=== PATIENT | female | born 1995 | race Caucasian/White ===

== ENCOUNTER 2017-02-02 00:08 | Emergency (ER) | payer MEDICAID, OTHER ==
--- NOTE | 2017-02-02 00:49 | PD ---
HPI Chief Complaint Vaginal bleeding Date Seen: Feb 02, 2017 Time Seen: 00:44 Travel History International Travel<30 Days: No Contact w/Intl Traveler<30Days: No Known Affected Area: No History of Present Illness HPI 21-year-old white female who is 36 weeks and 3 days comes in to the OB ED due to vaginal bleeding. She was seen and the office today vaginal examination was performed for which she had some bleeding as a result. She called the nurse who stated that she needed to go directly to the hospital if the bleeding lasted for greater than an hour. Patient went to work that is that she still had some brown discharge and she came here for an evaluation. Denies contractions or vaginal discharge and no pain Para: 0 History Past Medical History Medical History: Denies Significant Hx Past Surgical History Narrative Surgical Neck surgery and tonsillectomy Family History Family History: Negative Social History Alcohol Use: No Tobacco Use: No Substance Abuse: No Allergies-Medications (Allergen,Severity, Reaction): Coded Allergies: No Known Allergies (Verified , 07/30/16) Home Meds No Active Prescriptions or Reported Meds Review of Systems Except as stated in HPI: all other systems reviewed are Neg Physical Exam Narrative GENERAL: Well-nourished, well-developed patient. SKIN: Warm and dry. HEAD: Normocephalic and atraumatic. EYES: No scleral icterus. No injection or drainage. ENT: No nasal drainage noted. Mucous membranes pink. Airway patent. NECK: Supple, trachea midline. No JVD. CARDIOVASCULAR: Regular rate and rhythm without murmurs, gallops, or rubs. RESPIRATORY: Breath sounds equal bilaterally. No accessory muscle use. BREASTS: Bilateral exam showed no masses , no retractions, no nipple discharge. ABDOMEN/GI: Abdomen soft, non-tender, bowel sounds present, no rebound, no guarding Gravid to [-] weeks size Fundal Height: [37-] GENITOURINARY: External Genitalia: intact and normal in appearance BUS glands: [-Normal] Cervix: [-Posterior] Dilatation: [-1] Effacement: 50 Station: - 3 Presentation: [Vertex-] Membranes: Intact Uterine Contractions: [Absent-] FHT's: Category: [-1] Baseline: [140-] Reactive: Moderate Variability: Moderate Decels: Absent EXTREMITIES: No cyanosis or edema. BACK: Nontender without obvious deformity. No CVA tenderness. NEUROLOGICAL: Awake and alert. Motor and sensory grossly within normal limits. Five out of 5 muscle strength in all muscle groups. Normal speech. Data Data Vital Signs Reviewed: Yes MDM Plan 36-37 weeks gestation with mild vaginal bleeding earlier today due to cervix exam done in office by OB provider No signs of labor or active bleeding Discharge with follow up at OB office Diagnosis Diagnosis: Primary Impression: Vaginal bleeding during , antepartum Additional Impression: 36 weeks gestation of Disposition: DISCHARGE HOME Scripts No Active Prescriptions or Reported Meds Mercy Glover MD Feb 02, 2017 00:49
== END 2017-02-02 01:33 | disposition home or self-care (01) ==
LOC: HOBED 00:08
DX: O46.93 Antepartum hemorrhage, unspecified, third trimester (principal); Z3A.36 36 weeks gestation of pregnancy
CPT/HCPCS: 99283

== ENCOUNTER 2017-03-13 22:10 | Emergency (ER) | payer MEDICAID ==
[~2017-03-13] VITALS: Ht 162.6 cm; Wt 74.8 kg
[2017-03-13 22:22] VITALS: BP 133/88; PULSE 121; RESP 18; TEMP 100.2; O2SAT 99
[2017-03-13] MEDS ORDERED: OXYC-395 PO (22:45)
[2017-03-13 22:46] VITALS: BP 133/88; PULSE 121; RESP 18; TEMP 100.2; O2SAT 99
[2017-03-13 22:46] LABS: BLOOD, URINE LARGE (NEG); GLUCOSE,URINE NEG (NEG); KETONE, URINE NEG (NEG); NITRITE,URINE NEG (NEG)
[2017-03-13 22:49] LABS: URINE COLOR PINK (YELLW/STRAW)
[2017-03-13 22:51] LABS: BACTERIA, URINE MOD /hpf; COMMENT (UR) CULTURE INDICATED; CULTURE IF INDICATED CULTURE INDICATED; MUCUS URINE FEW /lpf (OCC); SQUAMOUS EPITHELIAL CELL URINE > 8 /hpf (0-5)
[2017-03-13] MEDS ORDERED: AUGM875T PO (23:10)
--- NOTE | 2017-03-13 23:10 | PD ---
HPI Chief Complaint: GI Complaint Time Seen by Provider: 22:28 Travel History International Travel<30 days: No Contact w/Intl Traveler<30days: No Traveled to known affect area: No History of Present Illness HPI This 21-year-old female is complaining of chills. She has had some pain with urinating. She's had some lower abdominal pain. She had a baby one week ago by vaginal delivery. She is having lower abdominal pain. Pain is moderate in intensity scleral PFSH Past Medical History Diminished Hearing: No Immunizations Current: Yes Tetanus Vaccination: Unknown Influenza Vaccination: No ?: Not LMP: BLEEDING NOW POST : 2 Para: 0 Miscarriage: 1 Past Surgical History Tonsillectomy: Yes Social History Alcohol Use: No Tobacco Use: No Substance Use: No Allergies-Medications (Allergen,Severity, Reaction): Coded Allergies: No Known Allergies (Verified , 03/13/17) Reported Meds & Prescriptions Reported Meds & Active Scripts Active Reported Oxycodone (Oxycodone HCl) 10 Mg Tab 10 Mg PO Q6H PRN Review of Systems General / Constitutional: Positive: Fever, Chills Eyes: No: Diploplia HENT: No: Headaches Cardiovascular: No: Chest Pain or Discomfort Respiratory: No: Cough, Shortness of Breath Gastrointestinal: No: Nausea Genitourinary: Positive: Frequency, Dysuria, Pelvic Pain Musculoskeletal: No: Myalgias Skin: No Rash Physical Exam Narrative GENERAL: Well-developed female SKIN: Focused skin assessment warm/dry. HEAD: Atraumatic. Normocephalic. EYES: Pupils equal and round. No scleral icterus. No injection or drainage. ENT: No nasal bleeding or discharge. Mucous membranes pink and moist. NECK: Trachea midline. No JVD. CARDIOVASCULAR: Regular rate and rhythm. No murmur appreciated. RESPIRATORY: No accessory muscle use. Clear to auscultation. Breath sounds equal bilaterally. GASTROINTESTINAL: Abdomen soft, non-tender, nondistended. Hepatic and splenic margins not palpable. Pelvic: There is some bleeding and some discharge. There is pain with palpation of the uterus and in his chest. MUSCULOSKELETAL: No obvious deformities. No clubbing. No cyanosis. No edema. NEUROLOGICAL: Awake and alert. No obvious cranial nerve deficits. Motor grossly within normal limits. Normal speech. PSYCHIATRIC: Appropriate mood and affect; insight and judgment normal. Data Data Last Documented VS Vital Signs Date Time Temp Pulse Resp B/P Pulse Ox O2 Delivery O2 Flow Rate FiO2 03/13/17 22:57 18 03/13/17 22:46 100.2 121 133/88 99 Orders Urinalysis - C+S If Indicated (03/13/17 22:29) Urine Culture (03/13/17 22:40) Labs Laboratory Tests Test 03/13/17 22:40 Urine Color PINK Urine Turbidity CLOUDY Urine pH 7.0 Urine Specific [place] 1.020 Urine Protein 100 mg/dL Urine Glucose (UA) NEG mg/dL Urine Ketones NEG mg/dL Urine Occult Blood LARGE Urine Nitrite NEG Urine Bilirubin NEG Urine Leukocyte Esterase MOD Urine RBC 10-14 /hpf Urine WBC 20-24 /hpf Urine Squamous Epithelial > 8 /hpf Cells Urine Amorphous Sediment FEW Urine Bacteria MOD /hpf Urine Mucus FEW /lpf Microscopic Urinalysis Comment CULTURE INDICATED MDM Medical Decision Making Medical Screen Exam Complete: Yes Emergency Medical Condition: Yes Medical Record Reviewed: Yes Differential Diagnosis Differential includes UTI, endometritis Narrative Course Patient does have a UTI and will be treated with Augmentin as this would also treat her possible endometritis. Diagnosis Primary Impression: Urinary tract infection Qualified Code: N30.01 - Acute cystitis with hematuria Scripts Amoxicillin-Clavulanate (Augmentin)875-125 mg [id number] Mg PO BID 10 Days Ref 0 not for use in CrCl <30 ml/min. Prov:Toño Jackman MD 03/13/17 Disposition: 01 DISCHARGE HOME Condition: Stable Toño Jackman MD March 13, 2017 23:10
[2017-03-13] MEDS ORDERED: AMOXICILLIN/CLAVULANATE K 875 MG TAB PO ONE (23:15)
== END 2017-03-13 23:27 | disposition home or self-care (01) ==
LOC: PHED 22:10
DX: N39.0 Urinary tract infection, site not specified (principal); R10.30 Lower abdominal pain, unspecified
CPT/HCPCS: 81001; 87070; 87086; 87205; 99283

== ENCOUNTER 2018-03-23 16:20 | Emergency (ER) | payer MEDICAID, OTHER ==
[~2018-03-23 16:20] MED LIST: METR1TAB76 PO; SPRI28TA PO
[2018-03-23 16:22] VITALS: BP 119/60; PULSE 107; RESP 16; TEMP 98.1; O2SAT 100
[2018-03-23 16:45] VITALS: O2SAT 99
[2018-03-23] MEDS ORDERED: SODIUM CHLOR 0.9% 1000 ML INJ 1,000 ML IV SCH (16:53)
[2018-03-23] MEDS ORDERED: SODIUM CHLORIDE 0.9% FLUSH 10 ML FLUSH IV FLUSH PRN (17:00)
[2018-03-23] MEDS ORDERED: ONDANSETRON ODT 4 MG TAB PO ONE (17:00)
--- NOTE | 2018-03-23 17:01 | PD ---
HPI Chief Complaint: GI Complaint Time Seen by Provider: 16:44 Travel History International Travel<30 days: No Contact w/Intl Traveler<30days: No Traveled to known affect area: No History of Present Illness HPI 22-year-old female here for evaluation of abdominal pain, nausea, and vomiting. Symptoms started yesterday evening and have persisted throughout the night. Patient reports that her vomiting was initially bilious, now is more clear, nonbloody. She complains of diffuse abdominal cramping. Last bowel movement was about 2 hours prior to arrival and was formed. No history of abdominal surgeries. She has had subjective fevers and chills. She also complains of mid back pain described as an ache. She reports that she had the pain 2 days ago in her back, it then subsided, then returned today. Pain is sharp, constant , worse with movements. No urinary symptoms. No vaginal bleeding or discharge. Denies IVDU. PFSH Past Medical History Diminished Hearing: No Immunizations Current: Yes ?: Unknown LMP: 02/21/18 : 2 Para: 0 Miscarriage: 1 Past Surgical History Tonsillectomy: Yes Social History Alcohol Use: No Tobacco Use: No Substance Use: No Allergies-Medications (Allergen,Severity, Reaction): Coded Allergies: No Known Allergies (Verified Adverse Reaction, Unknown, 03/23/18) Reported Meds & Prescriptions Reported Meds & Active Scripts Active Review of Systems Except as stated in HPI: all other systems reviewed are Neg Physical Exam Narrative GENERAL: Well-developed, well-nourished, no apparent distress. SKIN: Focused skin assessment warm/dry. HEAD: Atraumatic. Normocephalic. EYES: Pupils equal and round. No scleral icterus. No injection or drainage. ENT: Mucous membranes pink and dry. NECK: Trachea midline. No JVD. CARDIOVASCULAR: Regular rate and rhythm. No murmur appreciated. RESPIRATORY: No accessory muscle use. Clear to auscultation. Breath sounds equal bilaterally. GASTROINTESTINAL: Abdomen soft, nondistended. Mild diffuse tenderness without peritoneal signs. Normal bowel sounds. No hernias. MUSCULOSKELETAL: No obvious deformities. No clubbing. No cyanosis. No edema. No midline vertebral step-off or tenderness. No CVA tenderness. NEUROLOGICAL: Awake and alert. No obvious cranial nerve deficits. Motor grossly within normal limits. Normal speech. PSYCHIATRIC: Appropriate mood and affect; insight and judgment normal. Data Data Last Documented VS Vital Signs Date Time Temp Pulse Resp B/P (MAP) Pulse Ox O2 Delivery O2 Flow Rate FiO2 03/23/18 18:14 17 03/23/18 18:00 94 111/66 (81) 98 Room Air 03/23/18 16:22 98.1 Orders Orders Complete Blood Count With Diff (03/23/18 16:53) Comprehensive Metabolic Panel (03/23/18 16:53) Lipase (03/23/18 16:53) Prothrombin Time / Inr (Pt) (03/23/18 16:53) Act Partial Throm Time (Ptt) (03/23/18 16:53) Urinalysis - C+S If Indicated (03/23/18 16:53) Iv Access Insert/Monitor (03/23/18 16:53) Ecg Monitoring (03/23/18 16:53) Oximetry (03/23/18 16:53) Sodium Chlor 0.9% 1000 Ml Inj (Ns 1000 M (03/23/18 16:53) Sodium Chloride 0.9% Flush (Ns Flush) (03/23/18 17:00) Ed Urine Pregnancytest Poc (03/23/18 16:53) Ondansetron Odt (Zofran Odt) (03/23/18 17:00) Ketorolac Inj (Toradol Inj) (03/23/18 17:15) Al-Mag Hy-Si 40-40-4 Mg/Ml Liq (Mag-Al P (03/23/18 17:45) Lidocaine 2% Viscous (Xylocaine 2% Visco (03/23/18 17:45) Urine Culture (03/23/18 16:53) Ceftriaxone Inj (Rocephin Inj) (03/23/18 18:30) Morphine Inj (Morphine Inj) (03/23/18 18:30) Ct Abd/Pel W Iv Contrast(Rout) (03/23/18 ) Diphenhydramine Inj (Benadryl Inj) (03/23/18 19:00) Iohexol 350 Inj (Omnipaque 350 Inj) (03/23/18 19:04) Spine, Thoracic-Ap/Lat/Sw(3vw) (03/23/18 ) Labs Laboratory Tests Test 5/13/18 16:53 03/23/18 17:10 03/23/18 17:50 Urine Color STRAW Urine Turbidity SL CLOUDY Urine pH 7.0 Urine Specific [place] LESS/EQUAL 1.005 Urine Protein NEG mg/dL Urine Glucose (UA) NEG mg/dL Urine Ketones NEG mg/dL Urine Occult Blood NEG Urine Nitrite NEG Urine Bilirubin NEG Urine Urobilinogen 0.2 MG/DL Urine Leukocyte Esterase MOD Urine RBC 0-2 /hpf Urine WBC 15-19 /hpf Urine Squamous Epithelial Cells > 8 /hpf Urine Bacteria FEW /hpf Microscopic Urinalysis Comment CULTURE INDICATED White Blood Count 11.2 TH/MM3 Red Blood Count 4.73 MIL/MM3 Hemoglobin 13.6 GM/DL Hematocrit 40.4 % Mean Corpuscular Volume 85.5 FL Mean Corpuscular Hemoglobin 28.8 PG Mean Corpuscular Hemoglobin Concent 33.7 % Red Cell Distribution Width 13.1 % Platelet Count 309 TH/MM3 Mean Platelet Volume 8.2 FL Neutrophils (%) (Auto) 85.3 % Lymphocytes (%) (Auto) 8.6 % Monocytes (%) (Auto) 4.9 % Eosinophils (%) (Auto) 0.5 % Basophils (%) (Auto) 0.7 % Neutrophils # (Auto) 9.5 TH/MM3 Lymphocytes # (Auto) 1.0 TH/MM3 Monocytes # (Auto) 0.5 TH/MM3 Eosinophils # (Auto) 0.1 TH/MM3 Basophils # (Auto) 0.1 TH/MM3 CBC Comment AUTO DIFF Differential Comment AUTO DIFF CONFIRMED Platelet Estimate NORMAL Platelet Morphology Comment NORMAL Red Cell Morphology Comment NORMAL Prothrombin Time 10.8 SEC Prothromb Time International Ratio 1.1 RATIO Activated Partial Thromboplast Time 29.2 SEC Blood Urea Nitrogen 9 MG/DL Creatinine 0.67 MG/DL Random Glucose 102 MG/DL Total Protein 6.1 GM/DL Albumin 2.9 GM/DL Calcium Level 7.9 MG/DL Alkaline Phosphatase 83 U/L Aspartate Amino Transf (AST/SGOT) 11 U/L Alanine Aminotransferase (ALT/SGPT) 16 U/L Total Bilirubin 0.7 MG/DL Sodium Level 138 MEQ/L Potassium Level 3.5 MEQ/L Chloride Level 109 MEQ/L Carbon Dioxide Level 23.6 MEQ/L Anion Gap 5 MEQ/L Estimat Glomerular Filtration Rate 110 ML/MIN Lipase 68 U/L [facility] Medical Decision Making Medical Screen Exam Complete: Yes Emergency Medical Condition: Yes Differential Diagnosis Gastroenteritis, gastritis, pancreatitis, hepatobiliary disease, dehydration/ metabolic abnormality, musculoskeletal back strain from vomiting. Narrative Course Initial vital signs show heart rate 107, blood pressure 119/60, pulse ox 100% on room air, oral temperature 98.1F. CBC: WBC 11.2, hemoglobin 13.6, hematocrit 40.4, platelets 309, neutrophils 85%. CMP is essentially unremarkable. Lipase is 68. Urine is negative. UA: Cloudy, moderate leukocyte esterase, 15-19 WBCs, greater than 8 epithelial cells, few bacteria, culture indicated. CT abdomen pelvis: CONCLUSION: 1. No acute inflammatory process. 2. Functional follicle/hemorrhagic cyst right ovary measures 2 cm. The patient was given 30 mg of IV Toradol with initial improvement in back pain , however soon after returning. She was given 4 mg of IV morphine and shortly afterwards began to have pruritus. She was given Benadryl for this. Patient was made aware of all findings. She still complains of mid/upper back pain. X-ray of the T-spine will be ordered. X-ray thoracic spine: CONCLUSION: Unremarkable thoracic spine. Patient was made aware of all findings. She is resting comfortably, no acute distress. She states that while she was at x-ray with certain positions her back hurt worse. This makes me think that it is more likely musculoskeletal in nature. Her pain could be secondary to vomiting and musculoskeletal strain. It could also be secondary to pyelonephritis. Either way, the patient is stable for discharge home with outpatient follow-up with a primary care physician this week. I will give her a prescription for tramadol, ibuprofen, Macrobid, and Zofran. She reports that she has a night order selector whom she can follow-up with. I also advised that she follow-up with a primary care physician this week. She was advised on when to return to the emergency department. She verbalizes understanding and agreement with plan. Diagnosis Primary Impression: UTI (urinary tract infection) Qualified Codes: N10 - Acute pyelonephritis Additional Impressions: Nausea and vomiting Qualified Codes: R11.2 - Nausea with vomiting, unspecified Back pain Qualified Codes: M54.6 - Pain in thoracic spine Ovarian cyst Qualified Codes: N83.201 - Unspecified ovarian cyst, right side Abdominal pain Qualified Codes: R10.84 - Generalized abdominal pain Referrals: [facility] 3 days Primary Care Physician 3 days Additional Instructions: Follow-up with a primary care physician this week. Follow-up with your night order selector this week. Take medications as prescribed. Return to the emergency department for worsening symptoms or any other concerns. Scripts Tramadol (Tramadol) 50 Mg Tab 50 MG PO Q8H Y for PAIN, #10 TAB 0 Refills Prov: Hector Montez MD 03/23/18 Nitrofurantoin Monohydrate Macrocrystals (Macrobid) 100 Mg Cap 100 MG PO BID for Infection for 7 Days, #14 CAP 0 Refills Prov: Hector Montez MD 03/23/18 Ibuprofen (Ibuprofen) 600 Mg Tab 600 MG PO Q8H Y for PAIN for 10 Days, #30 TAB 0 Refills Prov: Hector Montez MD 03/23/18 Ondansetron Odt (Zofran Odt) 4 Mg Tab 4 MG SL Q8HR Y for Nausea/Vomiting, #20 TAB 0 Refills Prov: Hector Montez MD 03/23/18 Disposition: 01 DISCHARGE HOME Condition: Stable Hector Montez MD March 23, 2018 17:01
[2018-03-23] MEDS ORDERED: KETOROLAC TROMETHAMINE 30 MG/ML (IVP) VIAL IV PUSH ONE (17:15)
[2018-03-23 17:22] LABS: BILIRUBIN, URINE NEG (NEG); BLOOD, URINE NEG (NEG); GLUCOSE,URINE NEG (NEG); KETONE, URINE NEG (NEG); NITRITE,URINE NEG (NEG); URINE LEUKOCYTE ESTERASE MOD (NEG)
[2018-03-23 17:28] LABS: URINE COLOR STRAW (YELLW/STRAW)
[2018-03-23 17:36] LABS: AUTOMATED NEUTROPHIL # 9.5 TH/MM3 (1.8-7.7); BASOPHIL # 0.1 TH/MM3 (0-0.2); BASOPHIL % 0.7 % (0.0-2.0); EOSINOPHIL # 0.1 TH/MM3 (0-0.4); EOSINOPHIL % 0.5 % (0.0-4.0); HEMATOCRIT 40.4 % (35.0-46.0); HEMOGLOBIN 13.6 GM/DL (11.6-15.3); LYMPH % 8.6 % (9.0-44.0); MEAN CELL VOLUME 85.5 FL (80.0-100.0); MEAN CORPUSCULAR HEMOGLOBIN 28.8 PG (27.0-34.0); MEAN CORPUSCULAR HGB CONC 33.7 % (32.0-36.0); MEAN PLATELET VOLUME 8.2 FL (7.0-11.0); MONO % 4.9 % (0.0-8.0); MONOCYTE # 0.5 TH/MM3 (0-0.9); NEUT % 85.3 % (16.0-70.0); PLATELET COUNT 309 TH/MM3 (150-450); RED BLOOD COUNT 4.73 MIL/MM3 (4.00-5.30); RED CELL DISTRIBUTION WIDTH 13.1 % (11.6-17.2); WHITE BLOOD COUNT 11.2 TH/MM3 (4.0-11.0)
[2018-03-23] MEDS ORDERED: ALUMINUM/MAGNESIUM/SIMETH 30 ML CUP PO ONE (17:45)
[2018-03-23] MEDS ORDERED: LIDOCAINE VISCOUS 2% SOLN 15 ML UDC PO ONE (17:45)
[2018-03-23 18:00] VITALS: BP 111/66; PULSE 94; RESP 18; O2SAT 98
[2018-03-23 18:10] LABS: BACTERIA, URINE FEW /hpf; RBC, URINE 0-2 /hpf (0-3); SQUAMOUS EPITHELIAL CELL URINE > 8 /hpf (0-5); WBC, URINE 15-19 /hpf (0-5)
[2018-03-23 18:14] VITALS: RESP 17
[2018-03-23 18:14] LABS: CHLORIDE 109 MEQ/L (98-107); SODIUM (NA) 138 MEQ/L (136-145)
[2018-03-23 18:18] LABS: ALBUMIN 2.9 GM/DL (3.4-5.0); BICARBONATE 23.6 MEQ/L (21.0-32.0); BLOOD UREA NITROGEN 9 MG/DL (7-18); CALCIUM 7.9 MG/DL (8.5-10.1); GLUCOSE,RANDOM 102 MG/DL (74-106)
[2018-03-23 18:21] LABS: ALT (GPT) 16 U/L (10-53); AST (GOT) 11 U/L (15-37); CREATININE 0.67 MG/DL (0.50-1.00); GLOMERULAR FILTRATION RATE 110 ML/MIN (>89)
[2018-03-23 18:23] LABS: TOTAL BILIRUBIN ADULT 0.7 MG/DL (0.2-1.0); TOTAL PROTEIN 6.1 GM/DL (6.4-8.2)
[2018-03-23 18:24] LABS: ALKALINE PHOSPHATASE 83 U/L (45-117)
[2018-03-23] MEDS ORDERED: cefTRIAXone INJ 1,000 MG in SODIUM CHLORIDE 0.9% INJ 100 ML IV ONE (18:30)
[2018-03-23] MEDS ORDERED: MORPHINE SULFATE 4 MG/ML INJ IV PUSH ONE (18:30)
[2018-03-23 18:50] LABS: INTERNATIONAL NORMALIZED RATIO 1.1 RATIO; PROTHROMBIN TIME - PATIENT 10.8 SEC (9.8-11.6)
[2018-03-23] MEDS ORDERED: diphenhydrAMINE HCL 50 MG/ML VIAL IV PUSH ONE (19:00)
[2018-03-23] MEDS ORDERED: IOHEXOL 350 MG/ML 10 ML VIAL (for RAD DIAG) IVCONTRAST ONE (19:04)
--- NOTE | 2018-03-23 19:10 | RADRPT ---
EXAM DATE/TIME: 03/23/2018 18:51 [facility] COMPARISON: No previous studies available for comparison. INDICATIONS : Diffuse abdominal pain. IV CONTRAST: 95 cc Omnipaque 350 (iohexol) IV ORAL CONTRAST: No oral contrast ingested. RADIATION DOSE: 16.17 CTDIvol (mGy) MEDICAL HISTORY : None SURGICAL HISTORY : Tonsillectomy. ENCOUNTER: Initial ACUITY: 2 days PAIN SCALE: 8/10 LOCATION: Bilateral pelvis abdomen TECHNIQUE: Volumetric scanning of the abdomen and pelvis was performed. Using automated exposure control and ad justment of the mA and/or kV according to patient size, radiation dose was kept as low as reasonably achievable to obtain optimal diagnostic quality images. DICOM format image data is available electro nically for review and comparison. FINDINGS: LOWER LUNGS: The visualized lower lungs are clear. LIVER: Homogeneous density without lesion. There is no dilation of the biliary tree. No calcified gallston es. SPLEEN: Normal size without lesion. PANCREAS: Within normal limits. KIDNEYS: Normal in size and shape. There is no mass, stone or hydronephrosis. ADRENAL GLANDS: Within normal limits. VASCULAR: There is no aortic aneurysm. BOWEL/MESENTERY: The stomach, small bowel, and colon demonstrate no acute abnormality. There is no free intraperitone al air or fluid. Normal appendix. ABDOMINAL WALL: Within normal limits. RETROPERITONEUM: There is no lymphadenopathy. BLADDER: No wall thickening or mass. REPRODUCTIVE: Functional follicle/hemorrhagic cyst right ovary measures 2 cm. INGUINAL: There is no lymphadenopathy or hernia. MUSCULOSKELETAL: Within normal limits for patient age. CONCLUSION: 1. No acute inflammatory process. 2. Functional follicle/hemorrhagic cyst right ovary measures 2 cm. Jose Luis Lechuga MD on March 23, 2018 at 19:06 Board Certified Radiologist. This report was verified electronically.
--- NOTE | 2018-03-23 20:20 | RADRPT ---
EXAM DATE/TIME: 03/23/2018 19:42 [facility] COMPARISON: No previous studies available for comparison. INDICATIONS : Upper back pain, no known trauma. MEDICAL HISTORY : None. SURGICAL HISTORY : None. ENCOUNTER: Initial ACUITY: 2 days PAIN SCORE: 6/10 LOCATION: thoracic spine. FINDINGS: There is normal alignment of the thoracic vertebral bodies. Vertebral body height is maintained. No evidence of fracture or subluxation. Pedicles are intact at all levels. The paravertebral reflecti ons are not thickened. CONCLUSION: Unremarkable thoracic spine. Jose Luis Lechuga MD on March 23, 2018 at 20:14 Board Certified Radiologist. This report was verified electronically.
[2018-03-23] MEDS ORDERED: ZOFR4TAB3 SL (20:29)
[2018-03-23] MEDS ORDERED: MACR100C2 PO (20:29)
[2018-03-23] MEDS ORDERED: TRAM50TA PO (20:29)
[2018-03-23] MEDS ORDERED: IBUP-232 PO (20:29)
[2018-03-23 20:48] VITALS: BP 96/56
== END 2018-03-23 21:01 | disposition home or self-care (01) ==
LOC: PHED 16:20
DX: N10 Acute pyelonephritis (principal); R11.2 Nausea with vomiting, unspecified; M54.6 Pain in thoracic spine; N83.201 Unspecified ovarian cyst, right side
CPT/HCPCS: 72072; 74177; 80053; 81001; 83690; 84703; 85025; 85610; 85730; 87086; 96361; 96365; 96375; 99284; J0696; J1200; J1885; J2270; J7030; Q9967

== ENCOUNTER 2018-03-28 23:59 | Emergency (ER) | END 2018-03-29 03:11 | disposition home or self-care (01) | DX: M54.6 Pain in thoracic spine (principal); R10.30 Lower abdominal pain, unspecified; N83.209 Unspecified ovarian cyst, unspecified side; N30.00 Acute cystitis without hematuria; R14.0 Abdominal distension (gaseous); R11.0 Nausea | CPT/HCPCS: 76856; 80053; 81001; 83690; 84703; 85025; 85610; 85730; 87210; 87491; 87591; 96361; 96374; 96375; 99285; J1170; J1885; J7030 ==